=== PATIENT | male | born 1965 | race African-American/Black ===

== ENCOUNTER 2016-09-20 10:26 | Emergency (ER) | payer SELFPAY ==
[2016-09-20] MEDS ORDERED: Acetaminophen 500 MG TAB ONE (10:44)
--- NOTE | 2016-09-20 11:11 | ERRECORD ---
HEALTH SYSTEM EMERGENCY RECORD HPI COUGH (10:58 SHAN) CHIEF COMPLAINT: Patient presents for evaluation of cough. HISTORIAN: History provided by patient, History provided by patient's family, coughing up material, purulent and some blood; duration of 2 to 3 days; getting worse, much muscle aching with it. LOCATION: No localizing symptoms. TIME COURSE: Gradual onset of symptoms. ASSOCIATED WITH: Associated with chills. EXACERBATED BY: Patient's condition exacerbated by nothing. RELIEVED BY: Patient's condition relieved by nothing. ROS (10:59 SHAN) CONSTITUTIONAL: Negative constitutional review of systems. EYES: Negative eye review of systems. ENT: Negative ears, nose, throat review of systems. CARDIOVASCULAR: Negative cardiovascular review of systems. RESPIRATORY: Historian reports cough. GI: Negative gastrointestinal review of systems. MUSCULOSKELETAL: Negative musculoskeletal review of systems. SKIN: Negative skin review of systems. NEUROLOGIC: Negative neurologic review of systems. NOTES: All systems reviewed, negative except as described above. PAST MEDICAL HISTORY (10:38 BDON) MEDICAL HISTORY: Flu vaccine up to date, Tetanus immunization up to date, Pneumococcal vaccine up to date, Past medical history includes musculoskeletal disorder, chronic back pain. MALE SURGICAL HISTORY: Patient has no surgical history. PSYCHIATRIC HISTORY: No previous psychiatric history. SOCIAL HISTORY: Patient drinks socially, every week, Patient denies drug use, Patient currently uses tobacco, smokes cigarettes, daily, . FAMILY HISTORY: Family history is non-contributory to this case. No significant family history. KNOWN ALLERGIES No Known Drug Allergies CURRENT MEDICATIONS (10:36 BDON) None VITAL SIGNS VITAL SIGNS: BP: 136/69, Pulse: 129, Resp: 19, Temp: 102.5 (Oral), Pain: 7, O2 sat: 97, Time: 09/20/2016 10:33. (10:33 BDON) BP: 127/83, Pulse: 107, Resp: 17, Temp: 101.0 (Oral), Pain: 3, Time: 09/20/2016 11:46. (11:46 BDON) PHYSICAL EXAM (10:59 SHAN) &a-1R&a+25V*p+0X*h1339A*c152B*c15G*c2P*p-0X&a-25V&a+1RName: Mo Fernandes : M50 MedRec: [id number] AcctNum: [id number] Prepared: Shey Sep 20, 2016 18:26 by Interface Page 1 of 3 pMD [facility] SYSTEM EMERGENCY RECORD CONSTITUTIONAL: Patient afebrile, Pulse normal, Blood pressure normal, Respiratory rate normal, Normal pulse oximetry, Patient appears non toxic, Patient appears pain free, Patient alert and oriented to person, place and time, Nursing notes reviewed. HEAD: Head exam included findings of head atraumatic, normocephalic. EYES: Eye exam included findings of eyelids normal to inspection, Pupils equally round and reactive to light, Extraocular muscles intact. ENT: Pharynx exam normal, Uvula exam normal, Tonsil exam normal. NECK: Neck exam included findings of normal range of motion, Trachea midline. RESPIRATORY CHEST: minor ronchi. CARDIOVASCULAR: Cardiovascular exam included findings of heart rate regular rate and rhythm, Heart sounds normal. ABDOMEN MALE: Abdominal exam included findings of abdomen nontender, Bowel sounds normal. BACK: Back exam normal. UPPER EXTREMITY: Upper extremity exam included findings of inspection normal, Range of motion normal. NEURO: Neuro exam normal. SKIN: Skin exam normal. MEDICATION ADMINISTRATION SUMMARY Drug Name: Motrin, Dose Ordered: 1 tab(s), Route: Oral, Status: Given, Time: 11:52 09/20/2016, Drug Name: Rocephin IM Convenience, Dose Ordered: 1 g, Route: Intramuscular, Status: Given, Time: 11:20 09/20/2016, Drug Name: Tylenol, Dose Ordered: 1000 mg, Route: Oral, Status: Given, Time: 10:48 09/20/2016, Detailed record available in Medication Service section. DOCTOR NOTES TEXT: initial dispo note entered in error; wrong chart; only dx on this patient is acute bronchitis. (11:20 SHAN) chest x-ray and flu test negative; significant acute bronchitis apparent. (11:58 SHAN) PATIENT STATUS: Patient has improved since arrival to emergency department. (11:00 SHAN) Patient has improved since arrival to emergency department. (11:58 SHAN) PATIENT PLAN: The patient will be discharged. (11:00 SHAN) The patient will be discharged. (11:20 SHAN) DATA REVIEWED: Lab data reviewed, Xray data reviewed, Reviewed EKG. (11:00 SHAN) Lab data reviewed, Xray data reviewed. (11:20 SHAN) Lab data reviewed, Xray data reviewed. (11:58 SHAN) PROBLEM LIST No recorded problems &a-1R&a+25V*p+0X*q2992R*c152B*c15G*c2P*p-0X&a-25V&a+1RName: Mo Fernandes : M50 MedRec: [id number] AcctNum: [id number] Prepared: SatSep 20, 2016 18:26 by Interface Page 2 of 3 pMD [facility] EMERGENCY RECORD DIAGNOSIS FINAL: PRIMARY: MUSCLE WEAKNESS GENERALIZED, ADDITIONAL: headache, hx of cva. (11:03 JORGE) PRIMARY: hx of cva, ADDITIONAL: Acute bronchitis, headache, MUSCLE WEAKNESS GENERALIZED, no secondary dx. (12:04 SHAN) PRESCRIPTION (12:03 JORGE) Cipro tablet: TABLET : 500 mg : ORAL : Quantity: 1 Unit: tab(s) Route: ORAL Schedule: 2 times a day (with meals) Dispense: 20 Unit: tab(s) May substitute. Refills: No Refills . NOTES: No Refills. DISPOSITION PATIENT: Disposition Type: Discharge, Disposition: *Discharge Home. (11:03 JORGE) Disposition Type: Entered in Error, Disposition: (none). (11:12 JORGE) Disposition Type: Discharge, Disposition: *Discharge Home. (11:19 JORGE) Disposition Type: Entered in Error, Disposition: (none). (11:30 JORGE) Disposition Type: Discharge, Disposition: *Discharge Home. (12:04 JORGE) Patient left the department. (12:15 BDON) Chamorro: NOÉ=MISTY Bernard, Kasey PATEL=MD Leopoldo, Abhinav &a-1R&a+25V*p+0X*p6789R*c152B*c15G*c2P*p-0X&a-25V&a+1RName: Mo Fernandes : M50 MedRec: [id number] AcctNum: [id number] Prepared: [facility] Sep 20, 2016 18:26 by Interface Page 3 of 3 pMD MTDD
[2016-09-20] MEDS ORDERED: cefTRIAXone\\ROCEPHIN 1 GM VIAL ONE (11:12)
[2016-09-20] MEDS ORDERED: Lidocaine 1% 20 ML MDV ONE (11:13)
--- NOTE | 2016-09-20 11:17 | PICIS ---
[facility] EMERGENCY RECORD TRIAGE (SatSep 20, 2016 10:36 BDON) TRIAGE NOTES: Generalized bodyaches, coughing up blood. (SatSep 20, 2016 10:36 BDON) PATIENT: NAME: Mo Fernandes, AGE: 50, GENDER: male, : Sun 1965, TIME OF GREET: SatSep 20, 2016 10:27, PREFERRED LANGUAGE: Greek, ETHNICITY: Not or , ECODE BILLING MAP: [facility], SSN: [id number], Zip Code: [address], KG WEIGHT: 108.86, PHONE: , , , PERSON ID: [id number], PCP: MD David Jacques. (SatSep 20, 2016 10:36 BDON) COMPLAINT: COUGH UP BLOOD,CHILLS,HOT FLASHES. (SatSep 20, 2016 10:36 BDON) ADMISSION: URGENCY: 4 Non Urgent, ADMISSION SOURCE: Home, TRANSPORT: Walk-in, BED: TRIAGE. (SatSep 20, 2016 10:36 BDON) ASSESSMENT: Assessment: Coughing up blood and generalized bodyaches, Symptoms began yesterday. (10:38 BDON) TREATMENTS IN PROGRESS: Treatments given Prehospital: none. (10:38 BDON) PROVIDERS: TRIAGE NURSE: Kasey Bernard RN. (SatSep 20, 2016 10:36 BDON) VITAL SIGNS: BP 136/69, Pulse 129, Resp 19, Temp 102.5, (Oral), Pain 7, O2 Sat 97, Time 09/20/2016 10:33. (10:33 BDON) PREVIOUS VISIT ALLERGIES: No Known Drug Allergies. (SatSep 20, 2016 10:36 BDON) No Known Drug Allergies. (10:38 BDON) KNOWN ALLERGIES No Known Drug Allergies CURRENT MEDICATIONS (10:36 BDON) None VITAL SIGNS VITAL SIGNS: BP: 136/69, Pulse: 129, Resp: 19, Temp: 102.5 (Oral), Pain: 7, O2 sat: 97, Time: 09/20/2016 10:33. (10:33 BDON) BP: 127/83, Pulse: 107, Resp: 17, Temp: 101.0 (Oral), Pain: 3, Time: 09/20/2016 11:46. (11:46 BDON) NURSING ASSESSMENT: RESPIRATORY /CHEST (10:48 BDON) CONSTITUTIONAL: Patient arrives ambulatory, Gait steady, History obtained from patient, Patient appears, generally ill, Patient cooperative, Patient alert, Oriented to person, place and time, Skin warm, Skin dry, Skin normal in color, Patient is well-groomed. PAIN: aching pain. RESPIRATORY/CHEST: Lungs auscultated, Breath sounds with rales, Respiratory assessment findings include respiratory effort easy, Respirations regular, Conversing normally, Chest expansion equal, Associated with cough, productive of. SAFETY: Cart/Stretcher in lowest position, Hospital ID band on, &a-1R&a+25V*p+0X*u7173C*c152B*c15G*c2P*p-0X&a-25V&a+1RName: Mo Fernandes : M50 MedRec: [id number] AcctNum: [id number] Prepared: [facility] Sep 20, 2016 18:32 by Interface Page 1 of 7 pMD [facility] EMERGENCY RECORD Patient in view of the nursing station. NURSING PROCEDURE: BEDSIDE RADIOLOGY (11:04 CCRI) BEDSIDE RADIOLOGY: Bedside radiology performed by CC, Portable chest x-ray performed. NURSING PROCEDURE: DISCHARGE NOTE (12:11 BDON) DISCHARGE: Patient discharged to home, ambulating without assistance, accompanied by //partner, Summary of Care printed/ provided, Patient requested and was provided an electronic copy of Discharge Instructions, Transition record given to patient, Discharge instructions given to patient, Discharge instructions given to mother, Simple or moderate discharge teaching performed, Prescriptions given and instructions on side effects given, Medication reconciliation form given, Above person(s) verbalized understanding of discharge instructions and follow-up care, Patient treated and evaluated by physician, Notes: no reaction to medication. NURSING PROCEDURE: NURSE NOTES (11:47 BDON) NURSES NOTES: Patient is improving, Notes: States feels a lot better, continues to have fever. ORDER DETAILS Order Name: Influenza A&B Ag Screen, Status: Active, Time: 10:37 09/20/2016, User: BDON, - Ordered for: MD Mina Stanley, - Entered by: MISTY Bernard, Kasey - [facility] Sep 20, 2016 10:37, - Quantity: 1, Order Name: XR Chest 1 View Portable, Status: Active, Time: 10:57 09/20/2016, User: JORGE, - Ordered for: MD Mina Stanley, - Entered by: MD Mina Stanley - [facility] Sep 20, 2016 10:57, - Quantity: 1. MEDICATION ADMINISTRATION SUMMARY Drug Name: Motrin, Dose Ordered: 1 tab(s), Route: Oral, Status: Given, Time: 11:52 09/20/2016, Drug Name: Rocephin IM Convenience, Dose Ordered: 1 g, Route: Intramuscular, Status: Given, Time: 11:20 09/20/2016, Drug Name: Tylenol, Dose Ordered: 1000 mg, Route: Oral, Status: Given, Time: 10:48 09/20/2016, Detailed record available in Medication Service section. MEDICATION SERVICE Motrin: Order: Motrin (ibuprofen) - Dose: 1 tab(s) : Oral Schedule: Now Ordered by: Abhinav Mina MD &a-1R&a+25V*p+0X*d0385E*c152B*c15G*c2P*p-0X&a-25V&a+1RName: Mo Fernandes : M50 MedRec: [id number] AcctNum: [id number] Prepared: SatSep 20, 2016 18:32 by Interface Page 2 of 7 D [facility] EMERGENCY RECORD Entered by: Abhinav Mina MD [facility] Sep 20, 2016 11:50 Documented as given by: Kasey Bernard RN [facility] Sep 20, 2016 11:52 Patient, Medication, Dose, Route and Time verified prior to administration. Amount given: 600 mg, Site: Medication administered P.O., Correct patient, time, route, dose and medication confirmed prior to administration, Patient advised of actions and side-effects prior to administration, Allergies confirmed and medications reviewed prior to administration, Patient in position of comfort, Cart in lowest position. Rocephin IM Convenience: Order: Rocephin IM Convenience (ceftriaxone sodium/lidocaine HCl) - Dose: 1 g : Intramuscular Schedule: Now Ordered by: Abhinav Mina MD Entered by: Abhinav Mina MD [facility] Sep 20, 2016 10:58 Documented as given by: Kasey Bernard RN [facility] Sep 20, 2016 11:20 Patient, Medication, Dose, Route and Time verified prior to administration. IM antibiotic, Amount given: 1000 mg, Medication administered to right thigh, Correct patient, time, route, dose and medication confirmed prior to administration, Patient advised of actions and side-effects prior to administration, Allergies confirmed and medications reviewed prior to administration, Patient in position of comfort, Family at bedside. Tylenol: Order: Tylenol (acetaminophen) - Dose: 1000 mg : Oral Schedule: Now Ordered by: Abhinav Mina MD Entered by: Kasey Bernard RN [facility] Sep 20, 2016 10:42 Documented as given by: Kasey Bernard RN [facility] Sep 20, 2016 10:48 Patient, Medication, Dose, Route and Time verified prior to administration. Site: Medication administered P.O., Correct patient, time, route, dose and medication confirmed prior to administration, Patient advised of actions and side-effects prior to administration, Allergies confirmed and medications reviewed prior to administration, Patient in position of comfort, Family at bedside. HPI COUGH (10:58 SHAN) CHIEF COMPLAINT: Patient presents for evaluation of cough. HISTORIAN: History provided by patient, History provided by patient's family, coughing up material, purulent and some blood; duration of 2 to 3 days; getting worse, much muscle aching with it. LOCATION: No localizing symptoms. TIME COURSE: Gradual onset of symptoms. ASSOCIATED WITH: Associated with chills. EXACERBATED BY: Patient's condition exacerbated by nothing. RELIEVED BY: Patient's condition relieved by nothing. &a-1R&a+25V*p+0X*b7346C*c152B*c15G*c2P*p-0X&a-25V&a+1RName: Mo Fernandes : M50 MedRec: [id number] AcctNum: [id number] Prepared: SatSep 20, 2016 18:32 by Interface Page 3 of 7 pMD [facility] EMERGENCY RECORD ROS (10:59 SHAN) CONSTITUTIONAL: Negative constitutional review of systems. EYES: Negative eye review of systems. ENT: Negative ears, nose, throat review of systems. CARDIOVASCULAR: Negative cardiovascular review of systems. RESPIRATORY: Historian reports cough. GI: Negative gastrointestinal review of systems. MUSCULOSKELETAL: Negative musculoskeletal review of systems. SKIN: Negative skin review of systems. NEUROLOGIC: Negative neurologic review of systems. NOTES: All systems reviewed, negative except as described above. PAST MEDICAL HISTORY (10:38 BDON) MEDICAL HISTORY: Flu vaccine up to date, Tetanus immunization up to date, Pneumococcal vaccine up to date, Past medical history includes musculoskeletal disorder, chronic back pain. MALE SURGICAL HISTORY: Patient has no surgical history. PSYCHIATRIC HISTORY: No previous psychiatric history. SOCIAL HISTORY: Patient drinks socially, every week, Patient denies drug use, Patient currently uses tobacco, smokes cigarettes, daily, . FAMILY HISTORY: Family history is non-contributory to this case. No significant family history. PHYSICAL EXAM (10:59 SHAN) CONSTITUTIONAL: Patient afebrile, Pulse normal, Blood pressure normal, Respiratory rate normal, Normal pulse oximetry, Patient appears non toxic, Patient appears pain free, Patient alert and oriented to person, place and time, Nursing notes reviewed. HEAD: Head exam included findings of head atraumatic, normocephalic. EYES: Eye exam included findings of eyelids normal to inspection, Pupils equally round and reactive to light, Extraocular muscles intact. ENT: Pharynx exam normal, Uvula exam normal, Tonsil exam normal. NECK: Neck exam included findings of normal range of motion, Trachea midline. RESPIRATORY CHEST: minor ronchi. CARDIOVASCULAR: Cardiovascular exam included findings of heart rate regular rate and rhythm, Heart sounds normal. ABDOMEN MALE: Abdominal exam included findings of abdomen nontender, Bowel sounds normal. BACK: Back exam normal. UPPER EXTREMITY: Upper extremity exam included findings of inspection normal, Range of motion normal. NEURO: Neuro exam normal. SKIN: Skin exam normal. EVENTS &a-1R&a+25V*p+0X*d0248Y*c152B*c15G*c2P*p-0X&a-25V&a+1RName: Mo Fernandes : M50 MedRec: [id number] AcctNum: [id number] Prepared: [facility] Sep 20, 2016 18:32 by Interface Page 4 of 7 [facility] EMERGENCY RECORD TRANSFER: Triage to Emergency Triage. (10:36 BDON) Emergency Triage to Emergency Room -03. (10:37 BDON) Removed from Emergency Emergency Room -03. (12:15 BDON) DOCTOR NOTES TEXT: initial dispo note entered in error; wrong chart; only dx on this patient is acute bronchitis. (11:20 SHAN) chest x-ray and flu test negative; significant acute bronchitis apparent. (11:58 SHAN) PATIENT STATUS: Patient has improved since arrival to emergency department. (11:00 SHAN) Patient has improved since arrival to emergency department. (11:58 SHAN) PATIENT PLAN: The patient will be discharged. (11:00 SHAN) The patient will be discharged. (11:20 SHAN) DATA REVIEWED: Lab data reviewed, Xray data reviewed, Reviewed EKG. (11:00 SHAN) Lab data reviewed, Xray data reviewed. (11:20 SHAN) Lab data reviewed, Xray data reviewed. (11:58 SHAN) PROBLEM LIST No recorded problems DIAGNOSIS FINAL: PRIMARY: MUSCLE WEAKNESS GENERALIZED, ADDITIONAL: headache, hx of cva. (11:03 SHAN) PRIMARY: hx of cva, ADDITIONAL: Acute bronchitis, headache, MUSCLE WEAKNESS GENERALIZED, no secondary dx. (12:04 SHAN) DISPOSITION PATIENT: Disposition Type: Discharge, Disposition: *Discharge Home. (11:03 SHAN) Disposition Type: Entered in Error, Disposition: (none). (11:12 SHAN) Disposition Type: Discharge, Disposition: *Discharge Home. (11:19 SHAN) Disposition Type: Entered in Error, Disposition: (none). (11:30 SHAN) Disposition Type: Discharge, Disposition: *Discharge Home. (12:04 SHAN) Patient left the department. (12:15 BDON) INSTRUCTION (12:02 SHAN) DISCHARGE: BRONCHITIS, ABX TX (ADULT). FOLLOWUP: MD Frankie, Pradeep, Family Practice, [facility], [address] [place] [address], [facility] [id number], . SPECIAL: 1. antibiotic as directed 2. return if problem worsens 3. followup again soon with provider. PRESCRIPTION (12:03 SHAN) Cipro tablet: TABLET : 500 mg : ORAL : Quantity: 1 Unit: tab(s) Route: ORAL Schedule: 2 times a day (with meals) Dispense: 20 Unit: tab(s) May substitute. Refills: No Refills . &a-1R&a+25V*p+0X*y3020D*c152B*c15G*c2P*p-0X&a-25V&a+1RName: Mo Fernandes : M50 MedRec: [id number] AcctNum: [id number] Prepared: SatSep 20, 2016 18:32 by Interface Page 5 of 7 pMD [facility] EMERGENCY RECORD NOTES: No Refills. IMAGING *DISCHARGE INSTRUCTIONS RECEIPT: Image captured from scanner. (12:13 BDON) *SUPPLY CHARGE SHEET: Image captured from scanner. (12:14 BDON) ADMIN DIGITAL SIGNATURE: MD Leopoldo, Abhinav. (11:04 SHAN) MISTY Bernard, Kasey. (12:15 BDON) MD Mina Stanley. (18:24 SHAN) RESULTS RADIOLOGY: XR Chest 1 View Portable Observe DT: SatSep 20, 2016 10:59, CXRP ONE VIEW CHEST: History: Hemoptysis. Chills. Hot flashes. Comparison: 09-01-14 FINDINGS: Portable upright chest: Normal cardiac silhouette. The pulmonary vessels and hilum are normal. No consolidation or masses. No pneumothorax or osseous abnormalities. IMPRESSION: No acute cardiopulmonary process. POS: [facility] . (11:56 JORGE) MICROBIOLOGY: Influenza A&B Ag Screen: [id number] Collection DT: SatSep 20, 2016 10:47, See comment below , @ ER ROOM#: TRIAGE[TxData]:ER.BE Source: Nasopharynx Spec Desc: PENDING, Influenza A Antigen: NEGATIVE for the , presence of , INFLUENZA A Antigen , Influenza B Antigen: NEGATIVE for the , presence of , INFLUENZA B Antigen , The rapid Flu A&B test can distinguish between influenza A , Influenza A&B Ag Screen See comment below , and B viruses, but it does not differentiate influenza , Influenza A&B Ag Screen See comment below , subtypes. , Influenza A&B Ag Screen See comment below , Influenza A&B Ag Screen See comment below , &a-1R&a+25V*p+0X*z5351M*c152B*c15G*c2P*p-0X&a-25V&a+1RName: Mo Fernandes : 1 MedRec: [id number] AcctNum: [id number] Prepared: SatSep 20, 2016 18:32 by Interface Page 6 of 7 pMD [facility] EMERGENCY RECORD Influenza A&B Ag Screen See comment below , Influenza A&B Ag Screen See comment below , characteristics of this device with human specimens infected , Influenza A&B Ag Screen See comment below , with the 2008 H1N1 influenza virus have not been , Influenza A&B Ag Screen See comment below , established. For example: this test cannot distinguish , Influenza A&B Ag Screen See comment below , influenza infections caused by novel H1N1 influenza A , Influenza A&B Ag Screen See comment below , viruses versus seasonal influenza A viruses. , Influenza A&B Ag Screen See comment below , , Influenza A&B Ag Screen See comment below , A negative result does not exclude influenza virus , Influenza A&B Ag Screen See comment below , infection; therefore, if more conclusive testing is desired, , Influenza A&B Ag Screen See comment below , follow up confirmatory testing is warranted., Influenza A&B Ag Screen See comment below . (11:58 JORGE) Chamorro: NOÉ=MISTY Bernard, Kasey MARTINEZI=ROSIBEL [place] SHAN=MD Leopoldo, Abhinav &a-1R&a+25V*p+0X*v7094W*c152B*c15G*c2P*p-0X&a-25V&a+1RName: Mo Fernandes : 2 MedRec: [id number] AcctNum: [id number] Prepared: SatSep 20, 2016 18:32 by Interface Page 7 of 7 pMD MTDD
--- NOTE | 2016-09-20 11:41 | RAD ---
ONE VIEW CHEST: History: Hemoptysis. Chills. Hot flashes. Comparison: 09-01-14 FINDINGS: Portable upright chest: Normal cardiac silhouette. The pulmonary vessels and hilum are normal. No consolidation or masses. No pneumothorax or osseous abnormalities. IMPRESSION: No acute cardiopulmonary process. POS: [facility]
[2016-09-20] MEDS ORDERED: Ibuprofen 200 MG TAB ONE (11:49)
== END 2016-09-20 12:11 | disposition home or self-care (01) ==
LOC: NAV ERS 10:26
DX: J20.9 Acute bronchitis, unspecified (principal); M62.81 Muscle weakness (generalized); R51 Headache; F17.210 Nicotine dependence, cigarettes, uncomplicated
CPT/HCPCS: 71010; 96372; J0696; J2001

== ENCOUNTER 2016-10-18 04:32 | Emergency (ER) | payer SELFPAY ==
[2016-10-18] MEDS ORDERED: Ketorolac Tromethamine 60 MG/2 ML VIAL ONE (04:55)
[2016-10-18] MEDS ORDERED: methylPREDNISolone Acetate 40 mg/ml Vial ONE (04:55)
[2016-10-18] MEDS ORDERED: Dexamethasone 4 mg/ml Vial ONE (04:55)
--- NOTE | 2016-10-18 05:15 | ERRECORD ---
[facility] EMERGENCY RECORD HPI HIP (04:55 SHAN) CHIEF COMPLAINT: Patient presents for evaluation of pain. HISTORIAN: History provided by patient, History provided by patient's spouse. MECHANISM OF INJURY: no injury. SEVERITY: Maximum severity of symptoms moderate, Currently symptoms are moderate. ROS (04:56 SHAN) CONSTITUTIONAL: Negative constitutional review of systems. EYES: Negative eye review of systems. ENT: Negative ears, nose, throat review of systems. CARDIOVASCULAR: Negative cardiovascular review of systems. RESPIRATORY: Negative respiratory review of systems. GI: Negative gastrointestinal review of systems. MUSCULOSKELETAL: right hip pain. SKIN: Negative skin review of systems. NEUROLOGIC: Negative neurologic review of systems. NOTES: All systems reviewed, negative except as described above. PAST MEDICAL HISTORY (04:43 MBOS) MEDICAL HISTORY: No past medical history, Flu vaccine up to date, Tetanus immunization up to date, Pneumococcal vaccine up to date. MALE SURGICAL HISTORY: Patient has no surgical history. PSYCHIATRIC HISTORY: No previous psychiatric history. SOCIAL HISTORY: Patient drinks socially, every week, Patient denies drug use, Patient currently uses tobacco, smokes cigarettes, Patient smokes 1 pack per day. FAMILY HISTORY: Family history is non-contributory to this case. No significant family history. KNOWN ALLERGIES No Known Drug Allergies CURRENT MEDICATIONS (04:42 MBOS) None VITAL SIGNS (04:41 MBOS) VITAL SIGNS: BP: 132/69, Pulse: 85, Resp: 20, Temp: 97.8 (Oral), Pain: 9, O2 sat: 99 on Room Air, Time: 10/18/2016 04:41. PHYSICAL EXAM (04:56 SHAN) CONSTITUTIONAL: Patient afebrile, Pulse normal, Blood pressure normal, Respiratory rate normal, Normal pulse oximetry, Patient appears non toxic, Patient appears pain free, Patient alert and oriented to person, place and time, Nursing notes reviewed. HEAD: Head exam included findings of head atraumatic, normocephalic. EYES: Eye exam included findings of eyelids normal to inspection, Pupils equally round and reactive to light, Extraocular muscles intact. ENT: Pharynx exam normal, Uvula exam normal, Tonsil exam normal. &a-1R&a+25V*p+0X*[id number]*c152B*c15G*c2P*p-0X&a-25V&a+1RName: Mo Fernandes : M50 MedRec: [id number] AcctNum: [id number] Prepared: SatOct 18, 2016 05:37 by Interface Page 1 of 3 pMD [facility] EMERGENCY RECORD NECK: Neck exam included findings of normal range of motion, Trachea midline. RESPIRATORY CHEST: Respiratory and chest exam normal. CARDIOVASCULAR: Cardiovascular exam included findings of heart rate regular rate and rhythm, Heart sounds normal. ABDOMEN MALE: Abdominal exam included findings of abdomen nontender, Bowel sounds normal. BACK: Back exam normal. UPPER EXTREMITY: Upper extremity exam included findings of inspection normal, Range of motion normal. LOWER EXTREMITY: pain with walking on the right hip; pain in the right sacro-iliac area. NEURO: Neuro exam normal. SKIN: Skin exam normal. MEDICATION ADMINISTRATION SUMMARY Drug Name: Depo-Medrol intramuscular, Dose Ordered: 120 mg, Route: Intramuscular, Status: Canceled, Time: 05:06 10/18/2016, Drug Name: ketorolac intramuscular, Dose Ordered: 60 mg, Route: Intramuscular, Status: Canceled, Time: 05:05 10/18/2016, Drug Name: ketorolac intramuscular, Dose Ordered: 60 mg, Route: Intramuscular, Status: Given, Time: 05:09 10/18/2016, Drug Name: Decadron injection, Dose Ordered: 6 mg, Route: Intramuscular, Status: Given, Time: 05:09 10/18/2016, Detailed record available in Medication Service section. DOCTOR NOTES (04:57 SHAN) TEXT: Was on a ladder quite a bit yesterday; now with right si region pain, increased with walking ; had it x-rayed on last er visit. No trauma. PROBLEM LIST No recorded problems DIAGNOSIS (05:00 SHAN) FINAL: PRIMARY: RIGHT hip pain, ADDITIONAL: osteoarthritis of right hip, sacroilliitis. PRESCRIPTION Ultram: TABLET : 50 mg : ORAL : Quantity: 1 Unit: tab(s) Route: ORAL Schedule: every 6 hours PRN Dispense: 25 Unit: tab(s) May substitute. Refills: No Refills . (05:01 SHAN) NOTES: No Refills. (05:01 SHAN) Medrol (Alireza): TABLET, DOSE PACK : 4 mg : ORAL : Quantity: 1 Unit: tab(s) Route: ORAL Schedule: See Notes Dispense: 1 Unit: units May substitute. Refills: No Refills . (05:05 JORGE) NOTES: follow directions on pack. No Refills. (05:05 JORGE) &a-1R&a+25V*p+0X*[id number]*c152B*c15G*c2P*p-0X&a-25V&a+1RName: Mo Fernandes : 2 MedRec: [id number] AcctNum: [id number] Prepared: SatOct 18, 2016 05:37 by Interface Page 2 of 3 pMD [facility] EMERGENCY RECORD DISPOSITION PATIENT: Disposition Type: Discharge, Disposition: *Discharge Home. (05:00 JORGE) Patient left the department. (05:31 VANE) Chamorro: VANE=MISTY Bryson, Emma PATEL=MD Leopoldo, Abhinav &a-1R&a+25V*p+0X*[id number]*c152B*c15G*c2P*p-0X&a-25V&a+1RName: Mo Fernandes : 2 MedRec: [id number] AcctNum: [id number] Prepared: SatOct 18, 2016 05:37 by Interface Page 3 of 3 pMD MTDD
--- NOTE | 2016-10-18 05:21 | PICIS ---
[facility] EMERGENCY RECORD TRIAGE (04:42 MBOS) TRIAGE NOTES: right hip pain x 2 days. (04:42 MBOS) PATIENT: NAME: Mo Fernandes, AGE: 50, GENDER: male, : Sun 1965, TIME OF GREET: SatOct 18, 2016 04:33, PREFERRED LANGUAGE: Japanese, ETHNICITY: Not or , ECODE BILLING MAP: [facility], SSN: [id number], Zip Code: [address], KG WEIGHT: 102.06, PHONE: , , , PERSON ID: [id number], PCP: MD David Jacques. (04:42 MBOS) COMPLAINT: RIGHT SIDE PAIN. (04:42 MBOS) ADMISSION: URGENCY: 5 Fast Track, ADMISSION SOURCE: Home, TRANSPORT: CAR, BED: ER -03. (04:42 MBOS) ASSESSMENT: Assessment: right hip pain x 2 days, unrelieved by ibuprofen. Patient states this has happened before and he received an injection. (04:43 MBOS) IMMUNIZATIONS: Flu vaccine up to date, Tetanus immunization up to date, Pneumococcal vaccine up to date. (04:43 MBOS) SIRS SCORING: Heart Rate 55-109 (0), Temp range 96.8-101.1 (0), respiratory rate 12-24 (0). (04:43 MBOS) PROVIDERS: TRIAGE NURSE: Emma Bryson RN. (04:42 MBOS) VITAL SIGNS: BP 132/69, Pulse 85, Resp 20, Temp 97.8, (Oral), Pain 9, O2 Sat 99, on Room Air, Time 10/18/2016 04:41. (04:41 MBOS) PREVIOUS VISIT ALLERGIES: No Known Drug Allergies. (04:42 MBOS) No Known Drug Allergies. (04:43 MBOS) KNOWN ALLERGIES No Known Drug Allergies CURRENT MEDICATIONS (04:42 MBOS) None VITAL SIGNS (04:41 MBOS) VITAL SIGNS: BP: 132/69, Pulse: 85, Resp: 20, Temp: 97.8 (Oral), Pain: 9, O2 sat: 99 on Room Air, Time: 10/18/2016 04:41. NURSING ASSESSMENT: EXTREMITY LOWER (04:46 MBOS) CONSTITUTIONAL: Patient arrives ambulatory, Gait steady, History obtained from patient, Patient appears comfortable, Patient cooperative, Patient alert, Oriented to person, place and time, Skin warm, Skin dry, Skin normal in color, Mucous membranes pink, Mucous membranes moist, Patient is well-groomed, Patient complains of right hip pain, Patient also complaining of shingles. PAIN: to the right hip, on a scale 0-10 patient rates pain as 9. LEFT LOWER EXTREMITY: Left lower extremity assessment findings include capillary refill less than 2 seconds, Skin color normal, Skin temperature warm, Distal sensation intact, Muscle tone normal. RIGHT LOWER EXTREMITY: Right lower extremity assessment findings include capillary refill less than 2 seconds, Skin color normal, Skin temperature warm, Distal sensation intact, Muscle tone normal, muscle strength 5, no edema present, dorsalis pedis pulse is +3, Inspection &a-1R&a+25V*p+0X*t0446O*c152B*c15G*c2P*p-0X&a-25V&a+1RName: Mo Fernandes : M50 MedRec: [id number] AcctNum: [id number] Prepared: SatOct 18, 2016 05:42 by Interface Page 1 of 5 pMD [facility] EMERGENCY RECORD findings include no redness, Inspection findings include no swelling, Notes: right hip pain. SAFETY: Side rails up, Cart/Stretcher in lowest position, Family at bedside, Call light within reach, Hospital ID band on. NURSING PROCEDURE: DISCHARGE NOTE (05:29 MBOS) DISCHARGE: Patient discharged to home, ambulating without assistance, family driving, accompanied by //partner, Summary of Care printed/ provided, Discharge instructions given to patient, Simple or moderate discharge teaching performed, Prescriptions given and instructions on side effects given, Above person(s) verbalized understanding of discharge instructions and follow-up care, Patient treated and evaluated by physician. MEDICATION ADMINISTRATION SUMMARY Drug Name: Depo-Medrol intramuscular, Dose Ordered: 120 mg, Route: Intramuscular, Status: Canceled, Time: 05:06 10/18/2016, Drug Name: ketorolac intramuscular, Dose Ordered: 60 mg, Route: Intramuscular, Status: Canceled, Time: 05:05 10/18/2016, Drug Name: ketorolac intramuscular, Dose Ordered: 60 mg, Route: Intramuscular, Status: Given, Time: 05:09 10/18/2016, Drug Name: Decadron injection, Dose Ordered: 6 mg, Route: Intramuscular, Status: Given, Time: 05:09 10/18/2016, Detailed record available in Medication Service section. MEDICATION SERVICE Decadron injection: Order: Decadron injection (dexamethasone sod phosphate) - Dose: 6 mg : Intramuscular Schedule: Now Ordered by: Abhinav Mina MD Entered by: Abhinav Mina MD [facility] Oct 18, 2016 04:55 , Acknowledged by: Emma Bryson RN SatOct 18, 2016 04:56 Documented as given by: Emma Brysno RN [facility] Oct 18, 2016 05:09 Patient, Medication, Dose, Route and Time verified prior to administration. Patient appears Awake and alert- acceptable, Correct patient, time, route, dose and medication confirmed prior to administration, Patient advised of actions and side-effects prior to administration, Allergies confirmed and medications reviewed prior to administration, Patient in position of comfort, Side rails up, Cart in lowest position, Family at bedside. ketorolac intramuscular: Order: ketorolac intramuscular (ketorolac tromethamine) - Dose: 60 mg : Intramuscular Schedule: Now Ordered by: Abhinav Mina MD Entered by: Abhinav Mina MD [facility] Oct 18, 2016 05:06 Documented as given by: Emma Bryson RN [facility] Oct 18, 2016 05:09 Patient, Medication, Dose, Route and Time verified prior to administration. Patient appears Awake and alert- acceptable, Correct patient, time, &a-1R&a+25V*p+0X*y2937C*c152B*c15G*c2P*p-0X&a-25V&a+1RName: Mo Fernandes : M50 MedRec: [id number] AcctNum: [id number] Prepared: SatOct 18, 2016 05:42 by Interface Page 2 of 5 pMD [facility] EMERGENCY RECORD route, dose and medication confirmed prior to administration, Patient advised of actions and side-effects prior to administration, Allergies confirmed and medications reviewed prior to administration, Patient in position of comfort, Side rails up, Cart in lowest position. (CANCELED) Depo-Medrol intramuscular: Order: Depo-Medrol intramuscular (methylprednisolone acetate) - Dose: 120 mg : Intramuscular Schedule: Now Ordered by: Abhinav Mina MD Entered by: Abhinav Mina MD [facility] Oct 18, 2016 04:55 , Acknowledged by: Emma Bryson RN SatOct 18, 2016 04:56 Canceled by: Abhinav Mina MD. SatOct 18, 2016 05:06 Cancel reason: Change in medication plan. (CANCELED) ketorolac intramuscular: Order: ketorolac intramuscular (ketorolac tromethamine) - Dose: 60 mg : Intramuscular Schedule: Now Ordered by: Abhinav Mina MD Entered by: Abhinav Mina MD [facility] Oct 18, 2016 04:54 , Acknowledged by: Emma Bryson RN SatOct 18, 2016 04:56 Canceled by: Abhinav Mina MD. [facility] Oct 18, 2016 05:05 Cancel reason: Change in medication plan. HPI HIP (04:55 SHAN) CHIEF COMPLAINT: Patient presents for evaluation of pain. HISTORIAN: History provided by patient, History provided by patient's spouse. MECHANISM OF INJURY: no injury. SEVERITY: Maximum severity of symptoms moderate, Currently symptoms are moderate. ROS (04:56 SHAN) CONSTITUTIONAL: Negative constitutional review of systems. EYES: Negative eye review of systems. ENT: Negative ears, nose, throat review of systems. CARDIOVASCULAR: Negative cardiovascular review of systems. RESPIRATORY: Negative respiratory review of systems. GI: Negative gastrointestinal review of systems. MUSCULOSKELETAL: right hip pain. SKIN: Negative skin review of systems. NEUROLOGIC: Negative neurologic review of systems. NOTES: All systems reviewed, negative except as described above. PAST MEDICAL HISTORY (04:43 MBOS) MEDICAL HISTORY: No past medical history, Flu vaccine up to date, Tetanus immunization up to date, Pneumococcal vaccine up to date. MALE SURGICAL HISTORY: Patient has no surgical history. PSYCHIATRIC HISTORY: No previous psychiatric history. SOCIAL HISTORY: Patient drinks socially, every week, Patient denies drug use, Patient currently uses tobacco, smokes cigarettes, Patient smokes 1 pack per day. &a-1R&a+25V*p+0X*m7393P*c152B*c15G*c2P*p-0X&a-25V&a+1RName: Mo Fernandes : M50 MedRec: [id number] AcctNum: [id number] Prepared: SatOct 18, 2016 05:42 by Interface Page 3 of 5 pMD [facility] EMERGENCY RECORD FAMILY HISTORY: Family history is non-contributory to this case. No significant family history. PHYSICAL EXAM (04:56 SHAN) CONSTITUTIONAL: Patient afebrile, Pulse normal, Blood pressure normal, Respiratory rate normal, Normal pulse oximetry, Patient appears non toxic, Patient appears pain free, Patient alert and oriented to person, place and time, Nursing notes reviewed. HEAD: Head exam included findings of head atraumatic, normocephalic. EYES: Eye exam included findings of eyelids normal to inspection, Pupils equally round and reactive to light, Extraocular muscles intact. ENT: Pharynx exam normal, Uvula exam normal, Tonsil exam normal. NECK: Neck exam included findings of normal range of motion, Trachea midline. RESPIRATORY CHEST: Respiratory and chest exam normal. CARDIOVASCULAR: Cardiovascular exam included findings of heart rate regular rate and rhythm, Heart sounds normal. ABDOMEN MALE: Abdominal exam included findings of abdomen nontender, Bowel sounds normal. BACK: Back exam normal. UPPER EXTREMITY: Upper extremity exam included findings of inspection normal, Range of motion normal. LOWER EXTREMITY: pain with walking on the right hip; pain in the right sacro-iliac area. NEURO: Neuro exam normal. SKIN: Skin exam normal. EVENTS TRANSFER: Triage to Emergency Emergency Room -03. (SatOct 18, 2016 04:42 MBOS) Removed from Emergency Emergency Room -03. (05:31 MBOS) DOCTOR NOTES (04:57 SHAN) TEXT: Was on a ladder quite a bit yesterday; now with right si region pain, increased with walking ; had it x-rayed on last er visit. No trauma. PROBLEM LIST No recorded problems DIAGNOSIS (05:00 SHAN) FINAL: PRIMARY: RIGHT hip pain, ADDITIONAL: osteoarthritis of right hip, sacroilliitis. DISPOSITION PATIENT: Disposition Type: Discharge, Disposition: *Discharge Home. (05:00 SHAN) Patient left the department. (05:31 MBOS) &a-1R&a+25V*p+0X*[id number]*c152B*c15G*c2P*p-0X&a-25V&a+1RName: Mo Fernandes : M50 MedRec: [id number] AcctNum: [id number] Prepared: [facility] Oct 18, 2016 05:42 by Interface Page 4 of 5 pMD [facility] EMERGENCY RECORD INSTRUCTION (05:05 JORGE) DISCHARGE: HIP STRAIN, SACROILIITIS, OSTEOARTHRITIS. FOLLOWUP: MD David Jacques, [facility], [address] [place] [address], [facility] [address], . SPECIAL: 1. rest as possible for a couple of days 2. return for further evaluation if pain worsens instead of improving 3. Medrol dosepack 4. otc anti-inflammatory meds if needed 5. inspite of prior x-rays; if this continues we should go ahead with more testing. PRESCRIPTION Ultram: TABLET : 50 mg : ORAL : Quantity: 1 Unit: tab(s) Route: ORAL Schedule: every 6 hours PRN Dispense: 25 Unit: tab(s) May substitute. Refills: No Refills . (05:01 JORGE) NOTES: No Refills. (05:01 JORGE) Medrol (Alireza): TABLET, DOSE PACK : 4 mg : ORAL : Quantity: 1 Unit: tab(s) Route: ORAL Schedule: See Notes Dispense: 1 Unit: units May substitute. Refills: No Refills . (05:05 JORGE) NOTES: follow directions on pack. No Refills. (05:05 JORGE) IMAGING (05:30 MBOS) *DISCHARGE INSTRUCTIONS RECEIPT: Image captured from scanner. Page 2 added. Image captured from scanner. *SUPPLY CHARGE SHEET: Image captured from scanner. ADMIN (05:07 JORGE) DIGITAL SIGNATURE: MD Mina Stanley. Chamorro: VANE=MISTY Bryson, Emma PATEL=MD Mina Stanley &a-1R&a+25V*p+0X*y0968O*c152B*c15G*c2P*p-0X&a-25V&a+1RName: Mo Fernandes : M50 MedRec: [id number] AcctNum: [id number] Prepared: [facility] Oct 18, 2016 05:42 by Interface Page 5 of 5 pMD MTDD
== END 2016-10-18 05:27 | disposition home or self-care (01) ==
LOC: NAV ERS 04:32
DX: M16.11 Unilateral primary osteoarthritis, right hip (principal); M46.1 Sacroiliitis, not elsewhere classified; F17.210 Nicotine dependence, cigarettes, uncomplicated
CPT/HCPCS: 96372; J1030; J1100; J1885

== ENCOUNTER 2017-01-19 17:18 | Emergency (ER) | payer SELFPAY ==
[2017-01-19] MEDS ORDERED: Acetaminophen 500 MG TAB ONE (18:12)
[2017-01-19] MEDS ORDERED: Oseltamivir 75 MG CAP ONE (18:17)
== END 2017-01-19 18:40 | disposition home or self-care (01) ==
LOC: NAV ERS 17:18
DX: J10.1 Influenza due to other identified influenza virus with other respiratory manifestations (principal); F17.210 Nicotine dependence, cigarettes, uncomplicated
CPT/HCPCS: 87081; 87430; 99283

== ENCOUNTER 2017-04-07 06:49 | Emergency (ER) | payer SELFPAY ==
[2017-04-07 07:15] LABS: Bilirubin Negative (Negative); Blood, Urine Trace (Negative); Clarity Clear (Clear); Glucose, Urine (Dipstick) Negative (Negative); Leukocyte Negative (Negative); Nitrite Negative (Negative); Protein, Urine (Dipstick) Negative (Neg-Trace); Specific Gravity, Urine 1.025 (1.005-1.030)
[2017-04-07 07:16] LABS: Bacteria/HPF None Seen HPF (None Seen); RBC/HPF 0-3 HPF (0-3); Squamous Epithelial 0-3 HPF (0-3); WBC/HPF None Seen HPF (0-3)
[2017-04-07] MEDS ORDERED: Ibuprofen 800 MG TAB ONE (07:19)
== END 2017-04-07 07:35 | disposition home or self-care (01) ==
LOC: NAV ERS 06:49
DX: S91.332A Puncture wound without foreign body, left foot, initial encounter (principal); S30.861A Insect bite (nonvenomous) of abdominal wall, initial encounter; F17.210 Nicotine dependence, cigarettes, uncomplicated; R31.9 Hematuria, unspecified; W57.XXXA Bitten or stung by nonvenomous insect and other nonvenomous arthropods, initial encounter; W45.0XXA Nail entering through skin, initial encounter
CPT/HCPCS: 81003; 81015; 87086; 99283

== ENCOUNTER 2017-05-19 15:13 | Emergency (ER) | payer SELFPAY | END 2017-05-19 15:34 | disposition home or self-care (01) | LOC: NAV ERS 15:13 | DX: B35.6 Tinea cruris (principal); M19.90 Unspecified osteoarthritis, unspecified site; F17.210 Nicotine dependence, cigarettes, uncomplicated | CPT/HCPCS: 99282 ==

== ENCOUNTER 2017-06-11 16:17 | Emergency (ER) | payer SELFPAY ==
[2017-06-11] MEDS ORDERED: Acetaminophen/Codeine 30-300mg Tablet ONE (17:12)
--- NOTE | 2017-06-11 17:47 | RAD ---
RIGHT FOOT THREE VIEWS: 06/11/17 HISTORY: Right foot injury. COMPARISON: 01/28/16. FINDINGS: Healed fractures of the fourth and fifth metatarsals are apparent. Lisfranc joint alignment is anato brandan. Plantar arch is maintained. Prominent osteophytosis is present throughout the foot. Plantar and Achilles enthesophytes arise from the posterior aspect of the calcaneus. IMPRESSION: Old posttraumatic and degenerative changes of the right foot, as detailed above. No acute osseous ab normalities are demonstrated. POS: [facility]
== END 2017-06-11 17:20 | disposition home or self-care (01) ==
LOC: NAV ERS 16:17
DX: M79.671 Pain in right foot (principal); F17.210 Nicotine dependence, cigarettes, uncomplicated

== ENCOUNTER 2017-06-24 21:21 | Emergency (ER) | payer SELFPAY ==
[2017-06-24] MEDS ORDERED: Ondansetron HCl/PF 4 MG/2 ML Vial ONE (21:48)
[2017-06-24] MEDS ORDERED: Fentanyl 100 MCG/2 ML VIAL ONE (21:48)
[2017-06-24 22:00] LABS: #Basophils 0.1 thou/uL (0.0-0.2); #Eosinphils 0.1 thou/uL (0.0-0.7); #Lymphocytes 3.9 thou/uL (1.20-3.40); #Monocytes 0.7 thou/uL (0.11-0.59); #Neutrophils 6.7 thou/uL (1.40-6.50); %Basophils 0.7 % (0.0-1.0); %Eosinophils 1.2 % (0.0-10.0); %Monocytes 5.8 % (0.0-10.0); %Neutrophils 58.4 % (42.0-75.0); Hemoglobin 14.7 g/dL (14.0-18.0); Mean Corpuscular HGB CONC 34.7 g/dL (32.0-36.0); Mean Corpuscular Hemoglobin 29.7 pg (27.0-31.0); Mean Corpuscular Volume 85.6 fl (80.0-94.0); Mean Platelet Volume 9.1 fL (7.4-10.4); Platelet Count 158 thou/uL (130-400); RBC Distribution Width 11.5 % (11.5-14.5); Red Blood Cell (RBC) Count 4.93 mill/uL (4.70-6.10); White Blood Cell (WBC) Count 11.5 thou/uL (4.8-10.8)
[2017-06-24 22:16] LABS: Anion Gap 11 mmol/L (10-20); BUN (Urea Nitrogen) 22 mg/dL (8.4-25.7); Calc. Creatinine Clearance 0 mL/min (70-130); Carbon Dioxide 27 mmol/L (22-29); Chloride 107 mmol/L (98-107); Estimated GFR-MDRD 87; Glucose 91 mg/dL (70-105); Potassium 3.7 mmol/L (3.5-5.1); Sodium 141 mmol/L (136-145)
[2017-06-24 22:25] LABS: CKMB 3.1 ng/mL (0-6.6); Troponin I 0.019 ng/mL (< 0.028)
--- NOTE | 2017-06-24 22:30 | RAD ---
PORTABLE AP CHEST: Date: 06-24-17 History: Chest pain. Heart palpitations with deep breathing for two days. Comparison: 09-20-16 FINDINGS: Cardiac silhouette is magnified by projection but is stable in size compared to the prior study. Pul monary vasculature is within normal limits. Lungs are clear. There has been no interval change from prior study. IMPRESSION: No acute cardiopulmonary process. POS: [facility]
== END 2017-06-24 22:40 | disposition home or self-care (01) ==
LOC: NAV ERS 21:21
DX: R07.89 Other chest pain (principal); F17.210 Nicotine dependence, cigarettes, uncomplicated
CPT/HCPCS: 36415; 71010; 80048; 82553; 84484; 85025; 85379; 93005; 94760; 96374; 96375; J2405; J3010

== ENCOUNTER 2017-09-23 08:26 | Emergency (ER) | payer OTHER, SELFPAY ==
[2017-09-23] MEDS ORDERED: Ketorolac Tromethamine 60 MG/2 ML VIAL ONE (08:59)
--- NOTE | 2017-09-23 09:18 | RAD ---
THREE VIEWS LUMBAR SPINE: Indication: Low back pain and right hip pain. FINDINGS: There are five lumbar type vertebrae. Vertebral body heights and disc spaces are preserved. Spinal al ignment is within normal limits. There is moderate to severe osteoarthrosis involving the right hip w ith a prominent subchondral cyst like abnormality involving the right femoral head as well as the rig ht acetabulum. There is mild to moderate left sided hip osteoarthritic change. Enthesopathic change i s see off of the ischial spines. IMPRESSION: 1. Moderate right and mild to moderate left hip osteoarthrosis. 2. No acute osseous abnormality involving the lumbar spine. Enthesopathic change off the ischial spin e. POS: [facility]
== END 2017-09-23 09:36 | disposition home or self-care (01) ==
LOC: NAV ERS 08:26
DX: M47.9 Spondylosis, unspecified (principal); F17.210 Nicotine dependence, cigarettes, uncomplicated
CPT/HCPCS: 72100; 96372; J1885

== ENCOUNTER 2017-12-25 09:52 | Emergency (ER) | payer OTHER ==
[2017-12-25] MEDS ORDERED: Ketorolac Tromethamine 60 MG/2 ML VIAL ONE (10:23)
== END 2017-12-25 10:44 | disposition home or self-care (01) ==
LOC: NAV ERS 09:52
DX: M54.32 Sciatica, left side (principal); M19.90 Unspecified osteoarthritis, unspecified site; F17.210 Nicotine dependence, cigarettes, uncomplicated
CPT/HCPCS: 96372; J1885

== ENCOUNTER 2018-08-17 05:27 | Emergency (ER) | payer OTHER ==
[2018-08-17] MEDS ORDERED: Ketorolac Tromethamine 60 MG/2 ML VIAL ONE (06:21)
== END 2018-08-17 06:45 | disposition home or self-care (01) ==
LOC: NAV ERS 05:27
DX: M54.5 Low back pain (principal); M25.551 Pain in right hip; F17.210 Nicotine dependence, cigarettes, uncomplicated
CPT/HCPCS: 96372; J1885

== ENCOUNTER 2018-11-30 07:33 | Emergency (ER) | payer OTHER | END 2018-11-30 08:00 | disposition home or self-care (01) | LOC: NAV ERS 07:33 | DX: M54.5 Low back pain (principal); F17.210 Nicotine dependence, cigarettes, uncomplicated | CPT/HCPCS: 99281 ==

== ENCOUNTER 2019-02-23 13:13 | Emergency (ER) | payer BC ==
[2019-02-23] MEDS ORDERED: diphenhydrAMINE 25 MG CAP ONE (13:32)
[2019-02-23] MEDS ORDERED: Famotidine 20 MG TAB ONE (13:32)
[2019-02-23] MEDS ORDERED: predniSONE 20 MG TAB ONE (13:32)
== END 2019-02-23 13:45 | disposition home or self-care (01) ==
LOC: NAV ERS 13:13
DX: L50.0 Allergic urticaria (principal); I10 Essential (primary) hypertension; F17.210 Nicotine dependence, cigarettes, uncomplicated; Z79.899 Other long term (current) drug therapy
CPT/HCPCS: 99282; J7512; Q0163

== ENCOUNTER 2019-02-25 09:15 | Emergency (ER) | payer BC | END 2019-02-25 09:45 | disposition home or self-care (01) | LOC: NAV ERS 09:15 | DX: L29.9 Pruritus, unspecified (principal); R60.0 Localized edema; I10 Essential (primary) hypertension; F17.210 Nicotine dependence, cigarettes, uncomplicated; Z79.899 Other long term (current) drug therapy | CPT/HCPCS: 99283 ==

== ENCOUNTER 2019-04-13 11:00 | Emergency (ER) | payer BC | END 2019-04-13 12:00 | disposition home or self-care (01) | LOC: NAV ERS 11:00 | DX: S91.115A Laceration without foreign body of left lesser toe(s) without damage to nail, initial encounter (principal); I10 Essential (primary) hypertension; F17.210 Nicotine dependence, cigarettes, uncomplicated; Z79.899 Other long term (current) drug therapy; W26.8XXA Contact with other sharp object(s), not elsewhere classified, initial encounter | CPT/HCPCS: 12001 ==

== ENCOUNTER 2019-05-28 03:49 | Emergency (ER) | payer BC, SELFPAY ==
[2019-05-28] MEDS ORDERED: traMADol HCl 50 MG TAB ONE (04:47)
--- NOTE | 2019-05-28 08:30 | RAD ---
RIGHT FOOT 3 VIEWS: HISTORY: Right foot pain. FINDINGS: Old fracture of the 5th metatarsal shaft distally is noted. Prominent calcaneal spurs are again seen and prominent dorsal osteophytic changes of the talus are all similar to the previous exam. One sli ght difference since the prior examination is there appears to be some lucency through the os perineu m and accessory ossicle. I doubt that this is related to any type of acute injury as the margins are somewhat corticated and I have no history of trauma. IMPRESSION: Essentially stable exam as described above. POS: [facility]
== END 2019-05-28 05:26 | disposition home or self-care (01) ==
LOC: NAV ERS 03:49
DX: M65.271 Calcific tendinitis, right ankle and foot (principal); I10 Essential (primary) hypertension; F17.210 Nicotine dependence, cigarettes, uncomplicated

== ENCOUNTER 2019-06-09 05:37 | Emergency (ER) | payer BC ==
[2019-06-09] MEDS ORDERED: Lidocaine 1% (PF) 30 ML VIAL ONE (05:58)
[2019-06-09] MEDS ORDERED: Sulfameth/Trimethoprim DS 800-160mg TAB ONE (06:24)
[2019-06-09] MEDS ORDERED: Acetaminophen/Codeine 30-300mg Tablet ONE (06:25)
== END 2019-06-09 06:33 | disposition home or self-care (01) ==
LOC: NAV ERS 05:37
DX: L02.214 Cutaneous abscess of groin (principal); F17.210 Nicotine dependence, cigarettes, uncomplicated
CPT/HCPCS: 10060; 87070; 87205; J2001

== ENCOUNTER 2020-06-28 22:17 | Emergency (ER) | payer BC ==
[~2020-06-28 22:17] MED LIST: Iopamidol 370 76% 100 ML VIAL ONE
[2020-06-28 22:44] LABS: #Basophils 0.1 thou/uL (0.0-0.2); #Eosinphils 1.7 thou/uL (0.0-0.7); #Monocytes 0.7 thou/uL (0.11-0.59); #Neutrophils 5.5 thou/uL (1.40-6.50); %Basophils 0.8 % (0.0-1.0); %Eosinophils 13.8 % (0.0-10.0); %Lymphocytes 33.7 % (21.0-51.0); %Monocytes 5.8 % (0.0-10.0); %Neutrophils 45.8 % (42.0-75.0); Hemoglobin 14.3 g/dL (14.0-18.0); Mean Corpuscular HGB CONC 34.3 g/dL (32.0-36.0); Mean Corpuscular Hemoglobin 29.8 pg (27.0-31.0); Mean Corpuscular Volume 86.7 fL (78.0-98.0); Mean Platelet Volume 8.9 fL (7.4-10.4); Platelet Count 159 thou/uL (130-400); RBC Distribution Width 11.3 % (11.5-14.5); Red Blood Cell (RBC) Count 4.81 mill/uL (4.70-6.10)
[2020-06-28 23:04] LABS: ALT (SGPT) 75 U/L (8-55); AST (SGOT) 41 U/L (5-34); Albumin 3.7 g/dL (3.5-5.0); Alkaline Phosphatase 82 U/L (40-110); Anion Gap 15 mmol/L (10-20); BUN (Urea Nitrogen) 15 mg/dL (8.4-25.7); Bilirubin, Total 0.4 mg/dL (0.2-1.2); CK (CPK) 320 U/L (30-200); Calc. Creatinine Clearance 0 mL/min (70-130); Calcium 8.9 mg/dL (7.8-10.44); Carbon Dioxide 23 mmol/L (22-29); Chloride 110 mmol/L (98-107); Estimated GFR-MDRD 87; Globulin 3.4 g/dL (2.4-3.5); Glucose 102 mg/dL (70-105); Potassium 3.6 mmol/L (3.5-5.1); Protein, Total 7.1 g/dL (6.0-8.3); Sodium 144 mmol/L (136-145)
[2020-06-28] MEDS ORDERED: Ketorolac Tromethamine 30 MG/ML VIAL ONE (23:32)
[2020-06-28] MEDS ORDERED: Aspirin Chewable 81 MG TAB ONE (23:32)
--- NOTE | 2020-06-29 07:08 | RAD ---
PORTABLE CHEST: Date: 06/28/2020 HISTORY: Left-sided chest pain for 2 hours. COMPARISON: 06/24/2017 study. FINDINGS: Heart size and mediastinum are within normal limits. The lungs are clear of any infiltrative process. Arthritic changes of the shoulders are noted. IMPRESSION: No active intrathoracic disease. POS: [facility]
--- NOTE | 2020-06-29 08:06 | CT ---
CT ANGIO OF CHEST PERFORMED WITH IV CONTRAST ENHANCEMENT WITH 3D RECONSTRUCTIONS: Date: 06/28/2020 HISTORY: Left-sided chest pain that started at 9:00 p.m. tonight. FINDINGS: Lungs are clear of any infiltrative process. Emphysematous change is seen. No pleural effusions. Ther e is a 5-6 mm right middle lobe pulmonary nodule seen. The thoracic aorta is normal in caliber. There is suboptimal pulmonary artery opacification noted. I see no evidence for any large central emb olus. Peripheral emboli cannot be excluded on the basis of this exam. Visualized liver parenchyma shows no focal findings. IMPRESSION: 1. Limited examination. No CT evidence for central embolus. 2. No infiltrative lung process. POS: [facility]
== END 2020-06-29 00:13 | disposition short-term general hospital (02) ==
LOC: NAV ERS 22:17
DX: R07.81 Pleurodynia (principal); F17.210 Nicotine dependence, cigarettes, uncomplicated
CPT/HCPCS: 36415; 71045; 71275; 80053; 82550; 84484; 85025; 85379; 93005; 94760; 96374; J1885; Q9967

== ENCOUNTER 2020-11-06 07:08 | Emergency (ER) | payer BC ==
[2020-11-06] MEDS ORDERED: Lidocaine Viscous Sol 2% 15 ml UD Cup ONE (07:22)
[2020-11-06] MEDS ORDERED: Mag-Al Plus 1200 MG/1200 MG/120 MG/30 ML UDCUP ONE (07:22)
== END 2020-11-06 07:45 | disposition home or self-care (01) ==
LOC: NAV ERS 07:08
DX: K20.90 Esophagitis, unspecified without bleeding (principal); I10 Essential (primary) hypertension; F17.210 Nicotine dependence, cigarettes, uncomplicated
CPT/HCPCS: 93005

== ENCOUNTER 2020-11-26 00:03 | Emergency (ER) | payer BC ==
[2020-11-26] MEDS ORDERED: Mag-Al Plus 1200 MG/1200 MG/120 MG/30 ML UDCUP ONE (00:38)
[2020-11-26] MEDS ORDERED: Sodium Chloride 0.9% 1,000 ML ONE (00:38)
[2020-11-26] MEDS ORDERED: Loperamide HCl 2 MG CAP ONE (00:46)
[2020-11-26 00:52] LABS: #Eosinphils 0.1 thou/uL (0.0-0.7); #Lymphocytes 2.4 thou/uL (1.20-3.40); #Monocytes 0.8 thou/uL (0.11-0.59); #Neutrophils 11.1 thou/uL (1.40-6.50); %Basophils 0.5 % (0.0-1.0); %Eosinophils 0.7 % (0.0-10.0); %Lymphocytes 16.7 % (21.0-51.0); %Monocytes 5.4 % (0.0-10.0); %Neutrophils 76.6 % (42.0-75.0); Hemoglobin 17.6 g/dL (14.0-18.0); Manual Diff?? NO; Mean Corpuscular HGB CONC 34.7 g/dL (32.0-36.0); Mean Corpuscular Volume 86.6 fL (78.0-98.0); Mean Platelet Volume 9.9 fL (7.4-10.4); Platelet Count 205 thou/uL (130-400); RBC Distribution Width 11.8 % (11.5-14.5); Red Blood Cell (RBC) Count 5.86 mill/uL (4.70-6.10); White Blood Cell (WBC) Count 14.5 thou/uL (4.8-10.8)
[2020-11-26 00:53] LABS: #Basophils 0.1 thou/uL (0.0-0.2)
[2020-11-26 01:08] LABS: Bilirubin Small (Negative); Blood, Urine Negative (Negative); Clarity Clear (Clear); Glucose, Urine (Dipstick) Negative (Negative); Ketone, Urine Trace mg/dL (Negative); Leukocyte Negative (Negative); Nitrite Negative (Negative); Protein, Urine (Dipstick) 30 mg/dL (Neg-Trace); pH, Urine 5.5 (5.0-9.0)
[2020-11-26 01:17] LABS: RBC/HPF 0-3 HPF (0-3); Specific Gravity, Urine 1.028 (1.002-1.036); Squamous Epithelial 0-3 HPF (0-3)
[2020-11-26 01:18] LABS: Calcium Oxalate Crystals 2+ HPF (None Seen)
[2020-11-26] MEDS ORDERED: Cipro 250 MG TAB ONE (01:34)
[2020-11-26 01:41] LABS: ALT (SGPT) 64 U/L (8-55); AST (SGOT) 39 U/L (5-34); Albumin 3.9 g/dL (3.5-5.0); Alkaline Phosphatase 74 U/L (40-110); Anion Gap 14 mmol/L (10-20); BUN (Urea Nitrogen) 16 mg/dL (8.4-25.7); Bilirubin, Total 0.7 mg/dL (0.2-1.2); Calc. Creatinine Clearance 0 mL/min (70-130); Calcium 8.9 mg/dL (7.8-10.44); Carbon Dioxide 19 mmol/L (22-29); Chloride 111 mmol/L (98-107); Globulin 3.6 g/dL (2.4-3.5); Glucose 117 mg/dL (70-105); Lipase 24 U/L (8-78); Potassium 4.2 mmol/L (3.5-5.1); Protein, Total 7.5 g/dL (6.0-8.3); Sodium 140 mmol/L (136-145)
== END 2020-11-26 02:00 | disposition home or self-care (01) ==
LOC: NAV ERS 00:03
DX: K52.9 Noninfective gastroenteritis and colitis, unspecified (principal); K21.9 Gastro-esophageal reflux disease without esophagitis; I10 Essential (primary) hypertension; F17.210 Nicotine dependence, cigarettes, uncomplicated
CPT/HCPCS: 80053; 81003; 81015; 82274; 83630; 83690; 85025; 87045; 87046; 87427; 87449; 93005; J7050

== ENCOUNTER 2020-12-20 15:25 | Emergency (ER) | payer BC ==
[2020-12-20 16:06] LABS: INR-International Normal Ratio 1.1; PTT 30.1 sec (22.9-36.1); Prothrombin Time 14.2 sec (12.0-14.7)
[2020-12-20 16:24] LABS: #Basophils 0.1 thou/uL (0.0-0.2); #Eosinphils 0.2 thou/uL (0.0-0.7); #Monocytes 0.9 thou/uL (0.11-0.59); #Neutrophils 6.9 thou/uL (1.40-6.50); %Eosinophils 2.2 % (0.0-10.0); %Lymphocytes 26.8 % (21.0-51.0); %Monocytes 7.8 % (0.0-10.0); %Neutrophils 62.2 % (42.0-75.0); Hemoglobin 14.9 g/dL (14.0-18.0); Mean Corpuscular HGB CONC 33.7 g/dL (32.0-36.0); Mean Corpuscular Volume 88.9 fL (78.0-98.0); Mean Platelet Volume 11.2 fL (7.4-10.4); Platelet Count 171 thou/uL (130-400); RBC Distribution Width 11.9 % (11.5-14.5); Red Blood Cell (RBC) Count 4.98 mill/uL (4.70-6.10); White Blood Cell (WBC) Count 11.1 thou/uL (4.8-10.8)
== END 2020-12-20 16:44 | disposition home or self-care (01) ==
LOC: NAV ERS 15:25
DX: K62.5 Hemorrhage of anus and rectum (principal); I10 Essential (primary) hypertension; K21.9 Gastro-esophageal reflux disease without esophagitis; F17.210 Nicotine dependence, cigarettes, uncomplicated; Z79.82 Long term (current) use of aspirin; Z79.899 Other long term (current) drug therapy
CPT/HCPCS: 82274; 85025; 85610; 85730; 99283

== ENCOUNTER 2021-12-04 05:29 | Emergency (ER) | payer BC ==
[2021-12-04] MEDS ORDERED: Acetaminophen 325 MG TAB ONE (06:11)
== END 2021-12-04 06:14 | disposition home or self-care (01) ==
LOC: NAV ERS 05:29
DX: L60.0 Ingrowing nail (principal); I10 Essential (primary) hypertension; K21.9 Gastro-esophageal reflux disease without esophagitis; F17.210 Nicotine dependence, cigarettes, uncomplicated
CPT/HCPCS: 99283

== ENCOUNTER 2022-03-10 17:27 | Emergency (ER) | payer BC | END 2022-03-10 18:16 | disposition home or self-care (01) | LOC: NAV ERS 17:27 | DX: K04.7 Periapical abscess without sinus (principal); F17.210 Nicotine dependence, cigarettes, uncomplicated; I10 Essential (primary) hypertension; K21.9 Gastro-esophageal reflux disease without esophagitis; Z79.82 Long term (current) use of aspirin; Z79.899 Other long term (current) drug therapy | CPT/HCPCS: 99282 ==

== ENCOUNTER 2022-12-30 08:36 | Emergency (ER) | payer BC ==
[2022-12-30] MEDS ORDERED: Proparacaine 0.5% Opth 15 ML BOT ONE (08:55)
[2022-12-30] MEDS ORDERED: Fluorescein Opthalmic Strip ONE (08:55)
== END 2022-12-30 09:25 | disposition home or self-care (01) ==
LOC: NAV ERS 08:36
DX: S05.02XA Injury of conjunctiva and corneal abrasion without foreign body, left eye, initial encounter (principal); I10 Essential (primary) hypertension; K21.9 Gastro-esophageal reflux disease without esophagitis; F17.210 Nicotine dependence, cigarettes, uncomplicated; Z79.899 Other long term (current) drug therapy; Z79.82 Long term (current) use of aspirin; X58.XXXA Exposure to other specified factors, initial encounter
CPT/HCPCS: 99283

== ENCOUNTER 2023-01-17 09:00 | Emergency (ER) | payer BC ==
[2023-01-17 09:24] LABS: #Basophils 0.1 thou/uL (0.0-0.2); #Eosinphils 0.1 thou/uL (0.0-0.7); #Lymphocytes 2.9 thou/uL (1.20-3.40); #Monocytes 0.9 thou/uL (0.11-0.59); %Basophils 0.9 % (0.0-1.0); %Eosinophils 1.4 % (0.0-10.0); %Monocytes 9.3 % (0.0-10.0); %Neutrophils 59.5 % (42.0-75.0); Hemoglobin 14.3 g/dL (14.0-18.0); Mean Corpuscular HGB CONC 34.4 g/dL (32.0-36.0); Mean Corpuscular Hemoglobin 30.1 pg (27.0-31.0); Mean Corpuscular Volume 87.4 fl (78.0-98.0); Mean Platelet Volume 8.5 fL (7.4-10.4); Platelet Count 169 10x3/uL (130-400); RBC Distribution Width 11.5 % (11.5-14.5); Red Blood Cell (RBC) Count 4.75 mill/uL (4.70-6.10); White Blood Cell (WBC) Count 10.1 10x3/uL (4.8-10.8)
[2023-01-17 09:32] LABS: Prothrombin Time 13.4 sec (12.0-14.7)
[2023-01-17 09:33] LABS: PTT 29.4 sec (22.9-36.1)
[2023-01-17 09:43] LABS: ALT (SGPT) 46 U/L (8-55); AST (SGOT) 38 U/L (5-34); Albumin 3.8 g/dL (3.5-5.0); Alkaline Phosphatase 87 U/L (40-110); Anion Gap 13 mmol/L (10-20); BUN (Urea Nitrogen) 15 mg/dL (8.4-25.7); Bilirubin, Total 0.3 mg/dL (0.2-1.2); CK (CPK) 270 U/L (30-200); Calc. Creatinine Clearance 0 mL/min (70-130); Calcium 8.4 mg/dL (7.8-10.44); Carbon Dioxide 20 mmol/L (22-29); Chloride 113 mmol/L (98-107); Estimated GFR 93; Globulin 3.6 g/dL (2.4-3.5); Glucose 93 mg/dL (70-105); Lipase 54 U/L (8-78); Potassium 4.4 mmol/L (3.5-5.1); Protein, Total 7.4 g/dL (6.0-8.3); Sodium 142 mmol/L (136-145)
[2023-01-17] MEDS ORDERED: Dexamethasone 20 MG/5 ML VIAL ONE (09:49)
[2023-01-17] MEDS ORDERED: Ketorolac Tromethamine 30 MG/ML VIAL ONE (09:49)
== END 2023-01-17 10:26 | disposition home or self-care (01) ==
LOC: NAV ERS 09:00
DX: M94.0 Chondrocostal junction syndrome [Tietze] (principal); I10 Essential (primary) hypertension; K21.9 Gastro-esophageal reflux disease without esophagitis; F17.210 Nicotine dependence, cigarettes, uncomplicated; Z79.899 Other long term (current) drug therapy; Z79.82 Long term (current) use of aspirin
CPT/HCPCS: 71045; 80053; 82550; 83690; 83880; 84484; 85025; 85610; 85730; 93005; 96374; 96375; J1100; J1885

== ENCOUNTER 2023-05-18 17:23 | Emergency (ER) | payer BC | END 2023-05-18 18:08 | disposition home or self-care (01) | LOC: NAV ERS 17:23 | DX: B34.9 Viral infection, unspecified (principal); I10 Essential (primary) hypertension; F17.210 Nicotine dependence, cigarettes, uncomplicated; Z20.822 Contact with and (suspected) exposure to COVID-19 | CPT/HCPCS: 87635; 99283 ==

== ENCOUNTER 2023-10-13 05:20 | Emergency (ER) | payer BC, SELFPAY ==
[2023-10-13] MEDS ORDERED: predniSONE 20 MG TAB ONE (05:41)
[2023-10-13] MEDS ORDERED: Ketorolac Tromethamine 30 MG (1 mL) VIAL ONE (05:41)
== END 2023-10-13 06:10 | disposition home or self-care (01) ==
LOC: NAV ERS 05:20
DX: M53.3 Sacrococcygeal disorders, not elsewhere classified (principal); I10 Essential (primary) hypertension; K21.9 Gastro-esophageal reflux disease without esophagitis; F17.210 Nicotine dependence, cigarettes, uncomplicated; Z79.82 Long term (current) use of aspirin
CPT/HCPCS: 96372; 99283; J1885; J7512

== ENCOUNTER 2023-10-22 19:49 | Emergency (ER) | payer BC, SELFPAY ==
[2023-10-22] MEDS ORDERED: Sodium Chloride 0.9% 3,000 ML ONE (20:14)
[2023-10-22 20:21] LABS: #Basophils 0.1 thou/uL (0.0-0.2); #Eosinphils 0.1 thou/uL (0.0-0.7); #Lymphocytes 2.5 thou/uL (1.20-3.40); #Monocytes 1.1 thou/uL (0.11-0.59); #Neutrophils 6.8 thou/uL (1.40-6.50); %Eosinophils 1.1 % (0.0-10.0); %Lymphocytes 23.9 % (21.0-51.0); %Monocytes 10.1 % (0.0-10.0); %Neutrophils 63.8 % (42.0-75.0); Hematocrit 44.1 % (42.0-52.0); Hemoglobin 15.7 g/dL (14.0-18.0); Mean Corpuscular HGB CONC 35.7 g/dL (32.0-36.0); Mean Corpuscular Hemoglobin 30.7 pg (27.0-31.0); Mean Corpuscular Volume 86.2 fl (78.0-98.0); Mean Platelet Volume 8.6 fL (7.4-10.4); Platelet Count 209 10x3/uL (130-400); RBC Distribution Width 11.5 % (11.5-14.5); Red Blood Cell (RBC) Count 5.11 mill/uL (4.70-6.10); White Blood Cell (WBC) Count 10.6 10x3/uL (4.8-10.8)
[2023-10-22 20:29] LABS: Bilirubin Negative (Negative); Blood, Urine Negative (Negative); Clarity Clear (Clear); Glucose, Urine (Dipstick) Negative (Negative); Ketone, Urine Negative (Negative); Leukocyte Negative (Negative); Nitrite Negative (Negative); Protein, Urine (Dipstick) Negative (Neg-Trace); pH, Urine 7.5 (5.0-9.0)
[2023-10-22 20:32] LABS: ALT (SGPT) 45 U/L (8-55); Albumin 3.9 g/dL (3.5-5.0); Alkaline Phosphatase 81 U/L (40-110); Anion Gap 17 mmol/L (10-20); BUN (Urea Nitrogen) 13 mg/dL (8.4-25.7); Bilirubin, Total 0.3 mg/dL (0.2-1.2); Calc. Creatinine Clearance 0 mL/min (70-130); Calcium 8.6 mg/dL (7.8-10.44); Carbon Dioxide 17 mmol/L (22-29); Chloride 110 mmol/L (98-107); Estimated GFR 101; Glucose 82 mg/dL (70-105); Potassium 4.3 mmol/L (3.5-5.1); Protein, Total 7.9 g/dL (6.0-8.3); Sodium 140 mmol/L (136-145)
[2023-10-22 20:36] LABS: CAUTI Indications for Culture Fever or rigors; WBC/HPF 0-3 HPF (0-3)
[2023-10-22 20:37] LABS: Squamous Epithelial 0-3 HPF (0-3); Urine Culture Reflex No No
[2023-10-22 20:52] LABS: AST (SGOT) 39 U/L (5-34)
[2023-10-22 20:55] LABS: SARS-CoV-2 NAA Rapid Test DETECTED (NotDetected)
== END 2023-10-22 21:45 | disposition home or self-care (01) ==
LOC: NAV ERS 19:49
DX: U07.1 COVID-19 (principal); E86.0 Dehydration; I10 Essential (primary) hypertension; K21.9 Gastro-esophageal reflux disease without esophagitis; I25.2 Old myocardial infarction; Z79.82 Long term (current) use of aspirin; Z79.899 Other long term (current) drug therapy
CPT/HCPCS: 36415; 71045; 80053; 81001; 83605; 85025; 87040; 99284; J7050

== ENCOUNTER 2024-03-10 14:02 | Emergency (ER) | payer BC ==
[2024-03-10 14:53] LABS: #Basophils 0.1 thou/uL (0.0-0.2); #Eosinphils 0.1 thou/uL (0.0-0.7); #Lymphocytes 2.7 thou/uL (1.20-3.40); #Monocytes 0.8 thou/uL (0.11-0.59); #Neutrophils 6.1 thou/uL (1.40-6.50); %Basophils 1.2 % (0.0-1.0); %Eosinophils 1.1 % (0.0-10.0); %Lymphocytes 27.4 % (21.0-51.0); %Monocytes 8.4 % (0.0-10.0); Hematocrit 40.3 % (42.0-52.0); Hemoglobin 13.5 g/dL (14.0-18.0); Mean Corpuscular HGB CONC 33.5 g/dL (32.0-36.0); Mean Corpuscular Hemoglobin 28.5 pg (27.0-31.0); Mean Corpuscular Volume 85.2 fl (78.0-98.0); Mean Platelet Volume 8.9 fL (7.4-10.4); Platelet Count 151 10x3/uL (130-400); RBC Distribution Width 11.9 % (11.5-14.5); Red Blood Cell (RBC) Count 4.73 mill/uL (4.70-6.10); White Blood Cell (WBC) Count 9.8 10x3/uL (4.8-10.8)
[2024-03-10 15:06] LABS: ALT (SGPT) 49 U/L (8-55); AST (SGOT) 35 U/L (5-34); Albumin 3.7 g/dL (3.5-5.0); Alkaline Phosphatase 75 U/L (40-110); Anion Gap 13 mmol/L (10-20); BUN (Urea Nitrogen) 13 mg/dL (8.4-25.7); Bilirubin, Total 0.6 mg/dL (0.2-1.2); CK (CPK) 167 U/L (30-200); Calc. Creatinine Clearance 0 mL/min (70-130); Calcium 8.3 mg/dL (7.8-10.44); Carbon Dioxide 20 mmol/L (22-29); Chloride 113 mmol/L (98-107); Estimated GFR 89; Globulin 3.3 g/dL (2.4-3.5); Glucose 86 mg/dL (70-105); Magnesium 1.8 mg/dL (1.6-2.6); Potassium 3.6 mmol/L (3.5-5.1); Sodium 142 mmol/L (136-145); Troponin I Less than 0.010 ng/mL (< 0.028)
== END 2024-03-10 15:30 | disposition home or self-care (01) ==
LOC: NAV ERS 14:02
DX: T67.5XXA Heat exhaustion, unspecified, initial encounter (principal); R42 Dizziness and giddiness; I10 Essential (primary) hypertension; K21.9 Gastro-esophageal reflux disease without esophagitis; F17.210 Nicotine dependence, cigarettes, uncomplicated; Z79.899 Other long term (current) drug therapy; Z79.82 Long term (current) use of aspirin
CPT/HCPCS: 80053; 82550; 83735; 84484; 85025; 93005; 94760

== ENCOUNTER 2024-03-14 18:22 | Emergency (ER) | payer BC ==
[2024-03-14] MEDS ORDERED: Ketorolac Tromethamine 60 MG/2 ML VIAL ONE (18:40)
[2024-03-14] MEDS ORDERED: methylPREDNISolone Sod Succ/PF 125 MG/2 ML VIAL ONE (18:40)
== END 2024-03-14 18:55 | disposition home or self-care (01) ==
LOC: NAV ERS 18:22
DX: M25.551 Pain in right hip (principal); I10 Essential (primary) hypertension; F17.210 Nicotine dependence, cigarettes, uncomplicated; K21.9 Gastro-esophageal reflux disease without esophagitis; Z79.899 Other long term (current) drug therapy; Z79.82 Long term (current) use of aspirin
CPT/HCPCS: 96372; J1885; J2930

== ENCOUNTER 2024-04-19 10:29 | Emergency (ER) | payer BC ==
[2024-04-19] MEDS ORDERED: methylPREDNISolone Sod Succ/PF 125 MG/2 ML VIAL ONE (10:46)
[2024-04-19] MEDS ORDERED: Ibuprofen 800 MG TAB ONE (10:47)
[2024-04-19] MEDS ORDERED: Orphenadrine Citrate 60 MG/2 ML VIAL ONE (10:47)
== END 2024-04-19 11:06 | disposition home or self-care (01) ==
LOC: NAV ERS 10:29
DX: M54.50 Low back pain, unspecified (principal); G89.29 Other chronic pain; I10 Essential (primary) hypertension; F17.210 Nicotine dependence, cigarettes, uncomplicated; Z55.6 Problems related to health literacy
CPT/HCPCS: 96372; 99283; J2360; J2930

== ENCOUNTER 2024-08-28 07:29 | Emergency (ER) | payer BC, OTHER | END 2024-08-28 08:32 | disposition home or self-care (01) | LOC: NAV ERS 07:29 | DX: M54.50 Low back pain, unspecified (principal); G89.29 Other chronic pain; F17.210 Nicotine dependence, cigarettes, uncomplicated; I10 Essential (primary) hypertension; K21.9 Gastro-esophageal reflux disease without esophagitis; Z79.899 Other long term (current) drug therapy; Z79.82 Long term (current) use of aspirin | CPT/HCPCS: 99283 ==

== ENCOUNTER 2024-10-04 05:06 | Emergency (ER) | payer BC ==
[2024-10-04] MEDS ORDERED: Acetaminophen 500 MG TAB ONE (05:27)
== END 2024-10-04 06:00 | disposition home or self-care (01) ==
LOC: NAV ERS 05:06
DX: S93.601A Unspecified sprain of right foot, initial encounter (principal); I10 Essential (primary) hypertension; K21.9 Gastro-esophageal reflux disease without esophagitis; F17.210 Nicotine dependence, cigarettes, uncomplicated; X50.1XXA Overexertion from prolonged static or awkward postures, initial encounter
CPT/HCPCS: 99283